=== PATIENT | female | born 1960 | race Caucasian/White ===

== ENCOUNTER 2017-12-15 10:46 | Observation (INO) | payer BC ==
--- NOTE | 2017-12-15 11:37 | ED ---
Neurological HPI - HPI Summary HPI Summary: The pt is a 57 y/o female presenting [facility] c/o L-sided numbness since yesterday evening. It started in the LLE then radiated to the LUE and face. She notes tingling but denies weakness and any recent trauma or a hx of CVA. - History of Current Complaint Chief Complaint: EDNeurologicalDeficit Stated Complaint: LT SIDE NUMBNESS Time Seen by Provider: 12/15/17 11:24 Hx Obtained From: Patient Onset/Duration: Started days ago - 1 day, Still Present, Worse Since - Today morning Timing: Sudden Onset Neurological Deficit Location: Facial, LUE, LLE Pain Intensity: 0 Pain Scale Used: 0-10 Numeric Syncope Context: Loss of Consciousness: No Syncope Location: Partial Extremities - L-sided Associated Signs and Symptoms: Positive: Numbness. Negative: Weakness, Trauma: Recent - Allergy/Home Medications Allergies/Adverse Reactions: Allergies Allergy/AdvReac Type Severity Reaction Status Date / Time No Known Allergies Allergy Verified 12/15/17 10:55 PMH/Surg Hx/FS Hx/Imm Hx Previously Healthy: No Endocrine/Hematology History: Denies: Hx Diabetes Cardiovascular History: Reports: Hx Hypertension Neurological History: Denies: Hx CVA - Cancer History Cancer Type, Location and Year: None reported - Surgical History Surgery Procedure, Year, and Place: None Infectious Disease History: No Infectious Disease History: Denies: Traveled Outside the [place] in Last 30 Days - Family History Known Family History: Negative: Cardiac Disease, Hypertension, Diabetes - Social History Occupation: Employed Full-time Lives: With Family Alcohol Use: Daily Substance Use Type: Reports: None Smoking Status (MU): Never Smoked Tobacco Review of Systems Constitutional: Negative - Weakness Neurological: Other - Positive: tingling Positive: Numbness - L-sided All Other Systems Reviewed And Are Negative: Yes Physical Exam - Summary Physical Exam Summary: Appearance: Well appearing, no pain distress Skin: warm, dry, reflects adequate perfusion Head/face: normal Eyes: EOMI, JONA ENT: normal Neck: supple, non-tender Respiratory: CTA, breath sounds present Cardiovascular: RRR, pulses symmetrical Abdomen: non-tender, soft Bowel: present Musculoskeletal: normal, strength/ROM intact Neuro: normal, sensory motor intact, A&Ox3 GCS: 0 Triage Information Reviewed: Yes Vital Signs On Initial Exam: Initial Vitals Temp Pulse Resp BP Pulse Ox 96.9 F 71 17 163/109 99 12/15/17 10:51 12/15/17 10:51 12/15/17 10:51 12/15/17 10:51 12/15/17 10:51 Vital Signs Reviewed: Yes Diagnostics - Vital Signs Vital Signs Temp Pulse Resp BP Pulse Ox 12/15/17 11:17 79 14 97 12/15/17 11:16 76 168/112 98 12/15/17 10:51 96.9 F 71 17 163/109 99 - Laboratory Result Diagrams: 12/15/17 12:06 12/15/17 12:05 Lab Statement: Any lab studies that have been ordered have been reviewed, and results considered in the medical decision making process. - Radiology CXR Radiology Interpretation Completed By: Radiologist - IMPRESSION: NORMAL CHEST The ED physician reviewed this radiology report. - CT Brain CT CT Interpretation Completed By: Radiologist - IMPRESSION: NO EVIDENCE FOR GROSS ACUTE INFARCT, MASS EFFECT OR HEMORRHAGE. The ED physician reviewed this radiology report. - EKG 10:59 Cardiac Rate: NL - [address] Segment: Normal EKG Interpretation: No acute changes NIH Scale - NIH Scale Level of Consciousness: Alert/Keenly Responsive Ask Patient the Month and His/Her Age: Both Correct Ask Pt to Open/Close Eyes and Change Agent/Release Non-Paretic Hand: Both Correctly Best Gaze (Only Horizontal Eye Movement): Normal Visual Field Testing: No Visual Loss Facial Paresis-Pt to Smile & Close Eyes or Grimace Symmetry: Normal/Symmetrical Motor Function - Right Arm: No Drift-Holds 10 Seconds Motor Function - Left Arm: No Drift-Holds 10 Seconds Motor Function - Right Leg: No Drift-Holds 10 Seconds Motor Function - Left Leg: No Drift-Holds 10 Seconds Limb Ataxia-Must be out of Proportion to Weakness Present: Absent Sensory (Use Pinprick to Test Arms/Legs/Trunk/Face): Normal Best Language (Describe Picture, Name Items): No Aphasia Dysarthria (Read Several Words): Normal Extinction and Inattention: No Abnormality Total Score: 0 Course/Dx - Course Course Of Treatment: A 57 year-old F presents to the ED with a CC of L-sided numbness since yesterday evening. It started in the LLE then radiated to the LUE and face. She notes tingling but denies weakness and any hx of CVA. A physical exam, EKG brain CT and CXR are all unremarkable. In the ED course, the pt was given Aspirin 81 mg and 325 mg PO and N.s 0.9% 1000ml IV which improved the symptoms. I discussed the care of the pt with Dr. Art Nicole (neurologist ) who recommended admitting the pt for further observation; I also consulted with Dr. Miriam Duke (hospitalist) who agreed to admit the pt.The patient will be admitted with a final Dx of CVA and HTN. Pt is agreeable with this plan. - Differential Dx Differential Diagnoses Neuro: Positive: Cerebrovascular Accident, Intracranial Bleed, Transient Ischemic Attack - Diagnoses Provider Diagnoses: CVA (cerebral vascular accident), HTN (hypertension) - Physician Notifications Discussed Care Of Patient With: Art Nicole - Neuriologist Time Discussed With Above Provider: 12:11 Instructed by Provider To: Other - Dr. Nicole recommended admitting the pt for further observation. 12:21-I also spoke with Dr. Duke (hospitalist) who agreed to admit the pt. - Critical Care Time Critical Care Time: 30-74 min Discharge - Sign-Out/Discharge Documenting (check all that apply): Patient Departure - Discharge Plan Condition: Stable Disposition: ADMITTED TO [facility] - Billing Disposition and Condition Condition: STABLE Disposition: Admitted to [facility] - Attestation Statements Document Initiated by Yungibe: Yes Documenting Scribe: Nery Shirley Provider For Whom Scribe is Documenting (Include Credential): Dr. Khadar Moran MD Scribe Attestation: Nery Gastelum scribed for Dr. Khadar Moran MD on 12/15/17 at 1513. Scribe Documentation Reviewed: Yes Provider Attestation: The documentation as recorded by the Nery louis accurately reflects the service I personally performed and the decisions made by me, Dr. Khadar Moran MD
[2017-12-15] MEDS ORDERED: NS 0.9% 1000 ML* 1,000 ML IV SCH (11:45)
--- NOTE | 2017-12-15 12:04 | RAD ---
INDICATION: Neurologic changes, left side numbness. COMPARISON: There are no relevant prior studies available for comparison. TECHNIQUE: Contiguous axial sections of the brain were obtained from the skull base to the vertex without contrast. FINDINGS: The ventricles, cisterns and sulci are within normal limits. No significant focal abnormality or mass effect is seen. There is no evidence for hemorrhage. No significant focal osseous abnormality is seen. The visualized portion of the paranasal sinuses and mastoid air cells appear clear. IMPRESSION: NO EVIDENCE FOR GROSS ACUTE INFARCT, MASS EFFECT OR HEMORRHAGE.
[2017-12-15] MEDS ORDERED: Aspirin TAB* 325 MG PO ONE (12:14)
[2017-12-15] MEDS ORDERED: Aspirin 81 mg CHEW TAB* 81 MG TAB.CHEW ONE (12:19)
[2017-12-15] MEDS ORDERED: Aspirin 81 mg CHEW TAB* 81 MG TAB.CHEW PO ONE (12:20)
[2017-12-15 12:22] LABS: ABS Basophils 0 10^3/ul (0-0.2); ABS Eosinophils 0.1 10^3/ul (0-0.6); ABS Lymphocytes 1.3 10^3/ul (1.0-4.8); ABS Monocytes 0.4 10^3/ul (0-0.8); ABS Neutrophils 3.8 10^3/ul (1.5-7.7); ABS Nucleated RBC 0 10^3/ul; Eosinophil % 2.1 % (0-6); Hematocrit 37 % (35-47); Hemoglobin 12.7 g/dl (12.0-16.0); Mean Corpuscular HGB Conc 34 g/dl (31-36); Mean Corpuscular Hemoglobin 33 pg (27-31); Mean Corpuscular Volume 95 fL (80-97); Mean Platelet Volume 7.7 um3 (7.4-10.4); Nucleated Red Blood Cells % 0.1; Platelet Count 202 10^3/ul (150-450); Red Blood Count 3.89 10^6/ul (4.00-5.40); Red Cell Distribution Width 13 % (10.5-15); White Blood Count 5.8 10^3/ul (3.5-10.8)
[2017-12-15 12:29] LABS: INR 0.89 (0.77-1.02)
[2017-12-15 12:37] LABS: EGFR Non-African American 66.5 (>60)
--- NOTE | 2017-12-15 12:53 | RAD ---
INDICATION: CVA COMPARISON: None TECHNIQUE: An AP portable view obtained at 1230 hours is submitted. FINDINGS: Bones/Soft Tissues: There are no acute bony findings. Cardiomediastinal: The cardiomediastinal silhouette is normal. Lungs: There are no infiltrates. Pleura: There are no pleural effusions. Other: None IMPRESSION: NORMAL CHEST
[2017-12-15] MEDS ORDERED: Clopidogrel TAB* 300 MG PO ONE (14:06)
[2017-12-15] MEDS ORDERED: Acetaminophen TAB* 325 MG PO PRN (14:17)
[2017-12-15] MEDS ORDERED: Al Hydrox/Mg Hydrox/Simet LIQ* 30 ML UDC PO PRN (14:17)
[2017-12-15] MEDS ORDERED: Enoxaparin(*) 40 MG/0.4 ML SYR SUBCUT SCH (15:00)
--- NOTE | 2017-12-15 16:30 | RAD ---
INDICATION: CVA. COMPARISON: Comparison is made with a prior MRI of the brain of the same date. TECHNIQUE: A 3-D time of flight magnetic resonance angiogram was performed around the [place]. Images were reconstructed in the maximum intensity projection format. FINDINGS: The internal carotid, anterior and middle cerebral arteries appear patent without evidence for high-grade stenosis or occlusion. The vertebral, basilar and posterior cerebral arteries appear patent without evidence for high-grade stenosis or occlusion. No aneurysm or vascular malformation is seen. IMPRESSION: NEGATIVE EXAM.
--- NOTE | 2017-12-15 16:33 | RAD ---
INDICATION: CVA. COMPARISON: Correlation is made with a prior CT of the brain obtained earlier today. TECHNIQUE: Sagittal T1, axial T1, T2, susceptibility, FLAIR and diffusion weighted images were obtained. FINDINGS: The ventricles, cisterns and sulci appear to be within normal limits. No significant focal abnormality or mass effect is seen. No areas of restricted diffusion are present. There is no evidence for infarct or hemorrhage. The visualized portion of the paranasal sinuses and mastoid air cells appear clear. IMPRESSION: NO EVIDENCE FOR ACUTE INTRACRANIAL ABNORMALITY.
--- NOTE | 2017-12-15 16:38 | RAD ---
INDICATION: CVA. COMPARISON: There are no relevant prior studies available for comparison. TECHNIQUE: A 2-D imlm-lx-ghcode magnetic resonance angiogram of the neck was performed. Images were reconstructed in the maximum intensity projection format. The distal cervical internal carotid artery diameter is used as the denominator for stenosis measurement. FINDINGS: Right carotid: The right common and internal carotid arteries appear patent without evidence for hemodynamically significant stenosis. Left carotid: The left common and internal carotid arteries appear patent without evidence for hemodynamically significant stenosis. Vertebrals: The vertebral arteries appear patent bilaterally. IMPRESSION: SLIGHTLY LIMITED NONCONTRAST STUDY, NO EVIDENCE FOR HEMODYNAMICALLY SIGNIFICANT CAROTID STENOSIS. CPT II Codes: 3100F
--- NOTE | 2017-12-15 17:47 | HP ---
AMENDED REPORT NOW INCLUDES COSIGNER DESIGNATION - ESIGNED BEFORE ADJUSTMENT CC: Dr. Stefanie Tran * HISTORY AND PHYSICAL: DATE OF ADMISSION: 12/15/17 PROVIDER: Vaishali Trinh NP ATTENDING PHYSICIAN WHILE IN THE HOSPITAL: Dr. Miriam Zaidi * (dictated by Vaishali Trinh NP) CHIEF COMPLAINT: Left-sided numbness. HISTORY OF PRESENT ILLNESS: Ms. Kelsey is a 57-year-old female patient, who carries a past medical history significant for hypertension, hyperlipidemia, who presented to the emergency room for evaluation of left side numbness. The patient reports that approximately at 04:15 p.m yesterday, she was a passenger in the car riding with her and developed a sensation of numbness to her left knee. She sates that they were picking up her 's car. On her way driving back home, she developed some numbness in her left foot that progressed to numbness on the lateral aspect of her left arm radiating down to her pinky finger. She reports that she never developed any speech disturbance or any weakness on the left side. She does report that during the evening, the numbness progressed to her face, so she checked her blood pressure, which was 131/88 and 126/81. She did not have any other symptoms. She denied any dizziness and denied any headache, denied any loss of consciousness or recent head injury. The patient reports that she went to bed and slept through the night and when she woke this morning, she continued to have numbness on the left side. She reports that the numbness is on the lateral aspect of her left arm and radiates down to her pinky finger. She has numbness to her left knee cap and left great toe. She does have some sensation disturbance in the left cheek as well. She denies any other symptoms. Denies any fevers or chills. Denies any recent illnesses. Denies any chest pain or shortness of breath. Denies any cough or congestion. Denies any nausea, vomiting, or diarrhea. Denies any abdominal pain. Denies any hematuria or dysuria. Denies any difficulty speaking or swallowing. Denies any arthralgias or myalgias, any recent rashes or lesions. Denies any psychosis or anxiety. Given her symptoms of left-sided weakness, we were asked to see and evaluate her by the emergency room physician. PAST MEDICAL HISTORY: Significant for, 1. Hypertension. 2. Hyperlipidemia. PAST SURGICAL HISTORY: No surgical history. HOME MEDICATIONS: 1. Aspirin 81 mg p.o. daily. 2. Losartan/hydrochlorothiazide 100/25. FAMILY HISTORY: No reported history of coronary artery disease. No history of diabetes. Does report maternal grandmother with a history of colon cancer. SOCIAL HISTORY: Denies any tobacco or illicit drug use. She does report, she drinks 3 glasses of wine daily. 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 She is . Surrogate decision maker in the event if she is unable to make her own decision is her , Stanley, his phone number is . She is a full code. REVIEW OF SYSTEMS: There was no documented fever and no significant weight change. No double vision. No ear discharge. Denies any dizziness or lightheadedness. Denies any rhinorrhea or sore throat. Denies any chest pain, orthopnea, or nocturnal dyspnea. There was no abdominal pain. No nausea, vomiting, or diarrhea. Denies any dysuria or urinary frequency. There is no seizures, no loss of consciousness. No pruritus or skin ulcerations. She reports left side facial , knee, arm and left great toe numbness. Review of 14 systems was completed and all others were negative. PHYSICAL EXAMINATION GENERAL: At this time, Ms. Kelsey is a 57-year-old female. She appears well, sitting on the stretcher in the emergency room. She is not in any acute distress. VITAL SIGNS: Temperature was 96.9, heart rate is 80, respirations 16, O2 saturation 98% on room air, blood pressure was 155/103. HEENT: Head is atraumatic and normocephalic. Eyes: EOMs are intact. Sclerae anicteric and not pale. Oral mucosa appear to be moist. No oropharyngeal erythema. NECK: Supple. LUNGS: Clear to auscultation bilaterally. No wheezes, rales, or rhonchi. CARDIAC: S1 and S2. Regular rate and rhythm. No murmurs, rubs, or gallops. ABDOMEN: Soft and nontender. Bowel sounds are present x4. EXTREMITIES: Pulses are +2 throughout. She is able to move all 4 extremities with 5/5 strength. NEUROLOGIC: She is awake, alert, and oriented x3. Cranial nerves II through XII are intact. Hand petrology teacher were equal. Tongue is midline. Speech is clear. She does have some sensation deficits noted to the left cheek, left knee cap, and left lateral arm. There is no strength deficit noted. Rchiln-eo-wdes is intact. There is no nystagmus. SKIN: Intact. DIAGNOSTIC STUDIES AND LABORATORY DATA: WBCs are 5.8, RBCs 3.89, hemoglobin 12.7, hematocrit was 37, platelet count was 202. INR was 0.89, APTT was 24.8. Sodium 137, potassium 4.2, chloride 104, carbon dioxide 26, anion gap was 7, BUN was 13, creatinine 0.88, glucose was 108, ASTs were 28, ALTs were 29. She had a CT of the brain, radiologist's impression: No evidence of gross acute infarct, mass effect, or hemorrhage. She had a chest x-ray, normal chest, radiologist's impression. She had an electrocardiogram, which showed sinus rhythm at a rate of 71. ASSESSMENT AND PLAN: Ms. Kelsey is a 57-year-old female, who presented to the emergency room today with complaints of left-sided numbness that started yesterday at approximately 04:15. We were asked to see and evaluate her due to the left- sided numbness. She will be admitted under observation for: 1. Rule out cerebrovascular accident. She will have an MRI/MRA of her head and neck. I will order an echo with bubble study. She will be given Plavix loading dose 300 mg as per Neurology's recommendation. She will continue on aspirin 81 mg p.o. daily. She will start Plavix 75 mg p.o. daily starting tomorrow. She will be monitored on telemetry overnight. We will get neuro checks q.2 hours. We will add a lipid panel for the morning. 2. Hypertension. We will continue on her losartan/hydrochlorothiazide. 3. DVT prophylaxis. She will have Lovenox 40 mg subcu q.24 hour. 4. FEN. She can have a heart-healthy caffeine okay diet. 5. Code status. She is a full code. TIME SPENT: Time spent on this admission was 60 minutes, greater than half that time was spent [id number] with the patient obtaining my history and physical and the other half the time was spent going over my plan of care and implementing my plan of care. I have discussed this with my attending Dr. Miriam Zaidi, she is in agreement with my plan. VAISHALI TRINH, WELT POCKET MACHINE OPERATOR [id number]/[facility] #: [id number] ALBERTO
--- NOTE | 2017-12-15 20:28 | ECHO ---
Patient: LAVONNE BRAGA [facility] Rec#: [id number] : 1960 Date: 12/15/2017 Age: 57y Height: 172.7 cm / 68.0 in Weight: 95.3 kg / 210.0 lbs Sex: F BSA: 2.1 Room#: [facility] Admit Date#: 12/15/2017 Type: Inpatient Referring: Vaishali Trinh Reading: Zach Simmons DO Reading: Zach Simmons DO Operations And Maintenance Technician: Deepa Chandra RN RDCS CC: Stefanie Tran MD Transthoracic Echocardiogram Indication: CVA BP: 155/103 HR: 72 Rhythm: NSR Findings History: HTN Technical Comments: The study quality is fair. The study is technically limited due to patient body habitus. Completed at 1800. Left Ventricle: The left ventricular chamber size is normal. Mild concentric left ventricular hypertrophy is observed. Global left ventricular wall motion and contractility are within normal limits. There is normal left ventricular systolic function. The estimated ejection fraction is 55-60%. Normal left ventricular diastolic filling is observed. Left Atrium: The left atrial chamber size is normal. Right Ventricle: The right ventricular chamber size and systolic function are within normal limits. Right Atrium: The right atrial cavity size is normal. The bubble study is negative. A patent foramen ovale is not demonstrated with color Doppler and agitated contrast. Aortic Valve: The aortic valve structure is not well visualized. The aortic valve leaflets are mildly thickened. There is no evidence of aortic regurgitation. There is no evidence of aortic stenosis. Mitral Valve: The mitral valve leaflets appear normal. There is a trace of mitral regurgitation. There is no evidence of mitral stenosis. Tricuspid Valve: The tricuspid valve leaflets are normal. There is trace tricuspid regurgitation. Unable to estimate the right ventricular systolic pressure. There is no tricuspid stenosis. Pulmonic Valve: The pulmonic valve structure is not well visualized. There is a trace pulmonic regurgitation. There is no pulmonic stenosis. Pericardium: There is no significant pericardial effusion. Aorta: There is no dilatation of the ascending aorta. There is no dilatation of the aortic arch. There is no dilation of the aortic root. Pulmonary Artery: The main pulmonary artery is not well visualized. Venous: The inferior vena cava appears normal in size. There is a greater than 50% respiratory change in the inferior vena cava dimension. Contrast: Normal saline was used as contrast for the bubble study. Images 1 and 2. Conclusions The left ventricular chamber size is normal. Mild concentric left ventricular hypertrophy is observed. Global left ventricular wall motion and contractility are within normal limits. There is normal left ventricular systolic function. The estimated ejection fraction is 55-60%. The left atrial chamber size is normal. The right ventricular chamber size and systolic function are within normal limits. No significant valvular abnormalities noted The bubble study is negative. None prior for comparison at time of interpretation Measurements Name Value Normal Range RVDdMajor (2D) 3.2 cm (2.2 - 4.4) RAd ISD 4CH 3.9 cm (3.4 - 4.9) RA (A4C)W 3.3 cm (2.9 - 4.6) IVSd (2D) 1.2 cm (0.6 - 1) LVPWd (2D) 1.1 cm (0.6 - 1) LVIDd (2D) 3.9 cm (3.6 - 5.4) LVIDs (2D) 2.4 cm - LV FS (2D) 39 % (25 - 45) Aortic Annulus 2 cm (1.4 - 2.6) Ao root diameter (2D) 3.2 cm (2.1 - 3.5) Ascending Ao 3 cm (2.1 - 3.4) Aortic arch 2.5 cm (1.8 - 3.4) LA dimension (AP) 2D 2.9 cm (2.3 - 3.8) LAd ISD 4CH 4.4 cm (2.9 - 5.3) LA ISD 4CH W 4.1 cm (2.5 - 4.5) Name Value Normal Range LA ESV SP 4CH (A/L) 48 ml - LA ESV SP 2CH (A/L) 58 ml - LA ESV BP (A/L) 56 ml - LA ESV BP (A/L) index 27 ml/m2 - LA ESV SP 4CH (MOD) 43 ml - LA ESV SP 2CH (MOD) 53 ml - Name Value Normal Range MV E-wave Vmax 0.9 m/sec - MV deceleration time 186 msec - MV A-wave Vmax 0.85 m/sec - MV E:A ratio 1.1 ratio - LV septal e' Vmax 0.08 m/sec - LV lateral e' Vmax 0.11 m/sec - LV E:e' septal ratio 11.3 ratio - LV E:e' lateral ratio 8.2 ratio - Name Value Normal Range AV Vmax 1.6 m/sec - AV VTI 35.1 cm - AV peak gradient 10 mmHg - AV mean gradient 6 mmHg - LVOT Vmax 1.2 m/sec - LVOT VTI 23.7 cm - LVOT peak gradient 5.6 mmHg - LVOT mean gradient 2.9 mmHg - CIPRIANO Vmax 0.75 m/sec - Name Value Normal Range IVC diameter 1.6 cm - Name Value Normal Range PV Vmax 0.91 m/sec -
--- NOTE | 2017-12-15 21:03 | CONS ---
NEUROLOGY CONSULTATION: DATE OF CONSULT: 12/15/17 LOCATION: She is in the emergency room to be admitted. REFERRING PHYSICIAN: Dr. Moran. CHIEF COMPLAINT: Left-sided numbness. HISTORY OF PRESENT ILLNESS: Myranda Kelsey is a 57-year-old right-handed woman, who was in her usual state of health yesterday, in the early afternoon when she noted a sense of numbness of her left knee. Over the next several hours it progressed to a sense of numbness in the left leg including the foot, the left hand, and then into the left jaw and face. Last evening it was pretty persistent and stayed just on the left side. There is no sense of weakness, pain, or headaches. There is no incoordination or difficulty walking. There was no numbness on the right side. She decided to get it evaluated today and went first I believe to Urgent Care and then was sent to the emergency room. In the emergency room, she continues to have left-sided numbness, but no weakness. There is no neck pain, headache, or history of headaches. There is no change in vision. She had no difficulty walking. Her past medical history is notable for hypertension under treatment with losartan. That is the only prior medical problem. There is no history of diabetes, heart disease, and she is a nonsmoker. She is not aware of her lipids status. MEDICATIONS: The only medications at home are: 1. Losartan. 2. Aspirin 81 mg p.o. q. day. ALLERGIES: She does not have any drug allergies. REVIEW OF SYSTEMS: Negative for fevers, injuries, faints, heart disease, headaches, migraines, difficulty with speech or swallowing. She has been under a lot of stress for the last 2 weeks and just has decreased in the last couple of days. SOCIAL HISTORY: She is a nonsmoker. PHYSICAL EXAM: She is little overweight. Blood pressure was initially 163/109 and then 168/112, but then came down. Most recently it was 130/90. After I examined her, we were discussing the situation it went up to 150/103. Her heart rate in the 70s and regular. Respiratory rate is 17 and oxygen saturation is 98% on room air. Heart is in a regular rate and rhythm without murmurs. Lungs are clear bilaterally. Carotid pulses are symmetrical and there were no cervical bruits. Oral mucosa is moist and atraumatic. There is no pedal edema. On neurological exam, pupils react equally from 4 mm down to a 2.5 mm. Eye movements are normal. Visual stephens are full to confrontation. Funduscopic exam is normal bilaterally. Facial musculature is symmetric. There is no ptosis. Palate and tongue are normal, palate rises symmetrically, tongue protrudes in the midline. There is no dysarthria. Fascial sensation reported is symmetrical to light touch. There was decreased indiscrimination in the left face and decreased temperature sensation. Hearing is intact bilaterally. Neck muscle bulk is normal. Sensory exam in the limbs is notable for diminished pin and temperature in the left arm, but not hand, in the left foot relative to the right. Vibration sense is symmetrical on both sides. Vibration is normal in the hands as well. Stereognosis is intact in both palms. She can identify a coin easily in the left hand. Motor exam reveals normal muscle tone, strength, and bulk proximally, and distally in upper and lower extremities. There is no drift of any limb. Finger taps, oxmpgb-lf-oryg maneuver, and [id number]-[id number] maneuvers are normal and symmetric bilaterally. Reflexes are normal, active and symmetric in upper and lower extremities. Plantar responses are flexor bilaterally. She is alert and oriented and a good detailed historian. Memory is intact and language is fluent. She has adequate attention, concentration, and fund of knowledge. DIAGNOSTIC STUDIES/LAB DATA: Laboratory data notable for normal CBC, normal chemistry profile other than a non-fasting glucose of 108. PTT and INR are within normal limits. CT of the brain is reviewed and is interpreted as normal. I have reviewed the images and I agreed. EKG is unremarkable. Chest x-ray is interpreted as a normal chest x-ray. IMPRESSION AND PLAN: Impression is that of a possible small vessel thalamic stroke. She needs an MRI of the brain. She is already on an aspirin therapy. So, I recommend loading with Plavix 300 mg. I have discussed my impression with Myranda and her and answered questions. I told them I am concerned her symptoms are telemarketing representative of a stroke and we will know more after we get an MRI scan. Recommended the Plavix and explained the rationale. I think she should be admitted to telemetry and have a transthoracic echocardiogram with bubble study and an MRI angiogram of head and neck. She should have her fasting lipid profile tomorrow. Further recommendations depend upon her clinical course and results of her studies. [id number]/[facility] #: [id number] ALBERTO
[2017-12-15 22:57] LABS: Urine Appearance Clear; Urine Blood Negative (Negative); Urine Color Yellow; Urine Ketones Negative (Negative); Urine Protein Negative (Negative); Urine Specific Gravity 1.008 (1.010-1.030); Urine Urobilinogen Negative (Negative)
[2017-12-16] MEDS ORDERED: Clopidogrel TAB* 75 MG PO SCH (09:00)
[2017-12-16] MEDS ORDERED: Aspirin EC TAB* 81 MG TAB.EC PO SCH (09:00)
[2017-12-16 13:18] VITALS: BP 132/92
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
[2017-12-17] MEDS ORDERED: Hydrochlorothiazide TAB* 25 MG PO SCH (09:00)
[2017-12-17] MEDS ORDERED: Aspirin 81 mg CHEW TAB* 81 MG TAB.CHEW PO SCH (09:00)
[2017-12-17] MEDS ORDERED: Losartan TAB* 25 MG PO SCH (09:00)
== END 2017-12-16 14:44 | disposition home or self-care (01) ==
LOC: ED 10:46 → MEDTELE 14:08
PROVIDERS: ADMIT Internal Medicine; ATTEND Internal Medicine
DX: R20.1 Hypoesthesia of skin (principal); R20.0 Anesthesia of skin; I10 Essential (primary) hypertension; E78.5 Hyperlipidemia, unspecified; Z79.82 Long term (current) use of aspirin; Z79.899 Other long term (current) drug therapy; I51.7 Cardiomegaly
CPT/HCPCS: 36415; 70450; 70544; 70547; 70551; 71045; 80053; 80061; 81003; 85025; 85610; 85730; 93005; 93306; 96360; 96361; 96372; 99283; A9270-GY; G0378; J1650